=== PATIENT | male | born 2000 | race Two or more races ===

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

== ENCOUNTER 2023-03-13 13:04 | Emergency (ER) | payer MEDICAID ==
[~2023-03-13] VITALS: Ht 170.2 cm; Wt 51.6 kg
[2023-03-13 13:25] VITALS: BP 123/83; TEMP 98.6
[2023-03-13] MEDS ORDERED: NAPR-746 PO (14:36)
[2023-03-13 14:40] VITALS: PULSE 76; RESP 18; O2SAT 98
== END 2023-03-13 14:45 | disposition home or self-care (01) ==
LOC: ER 13:04
DX: T14.8XXA Other injury of unspecified body region, initial encounter (principal); Z88.5 Allergy status to narcotic agent; X50.0XXA Overexertion from strenuous movement or load, initial encounter; Y93.89 Activity, other specified; Y92.89 Other specified places as the place of occurrence of the external cause; Y99.8 Other external cause status
CPT/HCPCS: 73130